=== PATIENT | female | born 1990 | race Caucasian/White ===

== ENCOUNTER 2023-01-21 15:59 | Outpatient (CLI) | payer BC, SELFPAY ==
--- NOTE | ~2023-01-21 | US_ITS ---
EXAMINATION: US OB /maternal detail DATE: 01/21/2023 21:03 INDICATION: anatomic survey. TECHNIQUE: Real-time ultrasound of the pelvis was performed. COMPARISON: Ultrasound 11/27/2022 FINDINGS: There is a single living fetus in transverse lie. The placenta is right fundal, 4.8 cm from the cerv ix. The cervical length is normal and measures 5.6 cm on transabdominal images. heart rate is 1 43 beats per minute (bpm). The amniotic fluid index is 15.0 cm, which is normal. The following biometric data were obtained: Biparietal diameter (BPD): 4.4 cm; head circumference (HC): 16.1 cm; abdominal circumference (AC): 13 .9 cm; femur length (FL): 2.5 cm. These measurements are concordant. Estimated weight is 249 g +/- 37 g, which correlates with the 74th percentile when 06/23/23 is used as estimated date of delivery. As single measurements, these parameters are each equal to the following estimated gestational ages: BPD: 19 weeks 1 days. HC: 18 weeks 6 days. AC: 19 weeks 2 days. FL: 17 weeks 5 days. estimated gestational age based solely on measurements from this exam is 18 weeks 5 days +/- 1 weeks 2 days. The cerebral ventricles, cerebellum, cisterna magna, nuchal fold, lip, and visualized portions of the spine are normal. The heart is normal. The diaphragm, stomach, kidneys, and bladder are normal. Ther e are two umbilical arteries to yield a 3-vessel cord. The cord insertion is normal. IMPRESSION: 1. Single living fetus in transverse lie. 2. Estimated weight is 249 g +/- 37 g, which correlates with the 74th percentile when 06/23/23 is used as estimated date of delivery. This date was set by ultrasound on 11/27/22. 3. Normal anatomic survey. Reviewed, dictated and finalized at location A. IMPRESSION: 1. Single living fetus in transverse lie. 2. Estimated weight is 249 g +/- 37 g, which correlates with the 74th pe rcentile when 06/23/23 is used as estimated date of delivery. This date was set by ultrasound on 11/27/22. 3. Normal anatomic survey.
== END 2023-01-21 16:00 | disposition home or self-care (01) ==
PROVIDERS: Visit Provider Obstetrics & Gynecology Gynecology
DX: Z36.9 Encounter for antenatal screening, unspecified (principal); Z3A.18 18 weeks gestation of pregnancy
CPT/HCPCS: 76805

== ENCOUNTER 2023-04-01 09:45 | Outpatient (RCR) | payer BC, SELFPAY ==
[2023-04-01 11:45] LABS: Hematocrit 33.2 % (37.0-47.0); Hemoglobin 10.8 g/dL (12.0-15.0)
[2023-04-01 12:00] LABS: Glucose 1 Hour PP 50gm Dose 121 mg/dL
[2023-04-01 12:40] LABS: HIV 1/2 Ab P24 Ag Result Negative (Negative)
[2023-04-01 13:20] LABS: Vitamin D 25 Hydroxy 44.8 ng/mL
[2023-04-01] MEDS: RHO(D) IMMUNE GLOBULIN 300 MCG/2 ML SYRINGE IM (14:34)
== END 2023-06-30 23:59 | disposition home or self-care (01) ==
LOC: ANHLAB 09:45
PROVIDERS: Visit Provider Obstetrics & Gynecology Gynecology
DX: Z11.4 Encounter for screening for human immunodeficiency virus [HIV] (principal); Z29.13 Encounter for prophylactic Rho(D) immune globulin; O36.0190 Maternal care for anti-D [Rh] antibodies, unspecified trimester, not applicable or unspecified; Z3A.00 Weeks of gestation of pregnancy not specified
CPT/HCPCS: 36415; 82306; 82947; 85014; 85018; 85461; 86703; 86850; 86900; 86901; 90384; 96372; G0432; J2790

== ENCOUNTER 2023-06-18 00:01 | Inpatient (IN) | payer BC, SELFPAY ==
[2023-06-18] VITALS (215 sets, daily range): BP systolic 94–216; BP diastolic 52–165; PULSE 52–159; RESP 16–18; TEMP 36.4–36.8; O2SAT 91–100; BMI 26.7
[2023-06-18 00:45] LABS: Basophils Absolute Auto 0.1 K/mm3 (0.0-0.1); Basophils Percent Auto 0.7 % (0.2-1.2); Eosinophils Absolute Auto 0.3 K/mm3 (0-0.3); Eosinophils Percent Auto 3.3 % (0-4.4); Immature Granulocyte Absolute 0.07 K/mm3 (0.00-0.031); Immature Granulocyte Percent A 0.7 % (0-0.5); Lymphocytes Absolute Auto 2.42 K/mm3 (0.9-3.2); Lymphocytes Percent Auto 25.6 % (18.3-44.2); Mean Corpuscular HGB Conc 32.4 g/dl (32-36); Mean Corpuscular Hemoglobin 28.5 pg (26-34); Mean Corpuscular Volume 88.1 fl (80-100); Mean Platelet Volume 10.2 fl (7.4-10.4); Monocytes Absolute Auto 0.9 K/mm3 (0.1-0.6); Monocytes Percent Auto 9.1 % (2.6-8.5); Neutrophils Absolute Auto 5.7 K/mm3 (1.3-6.7); Neutrophils Percent Auto 60.6 % (45.5-73.1); Platelet Count Result 266 k/mm3 (150-375); Red Blood Count 3.86 M/mm3 (4.2-5.4); Red Cell Distribution Width 13.2 % (11.5-14.5); White Blood Count 9.5 K/mm3 (4.5-10.0)
[2023-06-18] MEDS: miSOPROStol 25 MCG TABLET VAGINAL (00:50)
--- NOTE | 2023-06-18 00:55 | LDADM ---
This patient, Hannah Tamayo, was admitted to Labor/Delivery/Recovery 105 on 06/18/23 at 00:01. Plans for labor, pain management and were discussed with patient. Patient/family oriented to hospital policies and general routines including ID bracelet, bed and alarms, visiting hours, pain management, procedures, bathroom and other care routines, personal items, smoking policy, room service/diet and guest tray routines, infant security routines, and visiting hours. Patient/Family are encouraged to report perceived risks to care and to ask questions if they do not understand what they are told or what they should do. See OBIX for further documentation.
[2023-06-18 00:59] LABS: Amphetamine Screen Urine Negative (Negative); Barbiturate Screen Urine Negative (Negative); Benzodiazepines Screen Urine Negative (Negative); Cannabinoid Screen Urine Positive (Negative); Cocaine Screen Urine Negative (Negative); Methadone Screen Urine Negative (Negative); Opiate Screen Urine Negative (Negative); Phencyclidine Screen Urine Negative (Negative)
[2023-06-18] MEDS: LACTATED RINGERS 1,000 ML 125 ML IV CONT ×2 (06:09→07:41)
[2023-06-18] MEDS: OXYTOCIN 30 UNITS/NS 500 ML 30 UNITS/500 ML BAG IV CONT (06:09)
--- NOTE | 2023-06-18 07:34 | WPDOBADMIT ---
Obstetrics - Admit Note Admission Note: record reviewed. No pertinent additions to the history and/or any subsequent changes in the physical findings that are not consistent with the expected course of the were found. Additions to the history and/or subsequent changes in the physical findings follow. None.
[2023-06-18] MEDS: ONDANSETRON INJ 4 MG/2 ML VIAL IV PUSH (07:39)
--- NOTE | 2023-06-18 08:59 | PM.OBPNLAB ---
Pain Control Date/time seen: 06/18/23 08:59 Pain control: tolerating well and epidural Comments: Partner present and supportive. Pelvic Exam Dilation (cm): 5 Effacement (%): 80 station: -2 Amniotic membrane status: Bulging Comments: Bulging forebag Contractions Monitor mode: External Contraction frequency: 2 (1.5-3) Contraction duration: 60 Contraction pattern: Regular Contraction phase: Contraction Contraction intensity: Moderate Status status: Category l Assessment and Plan Pitocin rate (mU/min): 2 Assessment: active labor Plan: continuous present management Comments: CNM to bedside. Discussed plan of care an option for amniotomy of forebag. Patient is agreeable. Amniotomy performed and there was a large return of meconium stained amniotic fluid with particulate. Patient tolerated procedure well. Anticipate vaginal . Dr. Yan updated.
--- NOTE | 2023-06-18 09:38 | WPDANESEPPF ---
Anes - Initial Pre Proc Eval Procedure: labor epidural Date/Time: 06/18/23 09:38 Surgeon: Lucero Yan MD Pre Op Diagnosis: labor pain Pre Op Diagnosis: IOL Patient Data Age: 32 Gender: F Height: 1.65 m Weight: 73 kg Last Vital Signs Temp 36.6 C 06/18/23 07:59 Pulse 90 06/18/23 09:32 Resp 16 06/18/23 07:00 BP 105/86 06/18/23 09:32 Pulse Ox 100 06/18/23 09:37 O2 Del Method Room Air 06/18/23 00:54 Allergies Allergy/AdvReac Type Severity Reaction Status Date / Time No Known Allergies Allergy Verified 05/29/23 13:20 Home Medications Medication Instructions Recorded Confirmed Type aspirin 81 mg capsule 81 mg PO DAILY 05/29/23 05/29/23 History vits no.126-ferrous fum 1 tablet PO DAILY 05/29/23 05/29/23 History 28 mg iron-folic acid 800 mcg tablet (Classic ) Laboratory Tests 06/18/23 00:35 WBC 9.5 K/mm3 (4.5-10.0) RBC 3.86 L M/mm3 (4.2-5.4) Hgb 11.0 L g/dL (12.0-15.0) Hct 34.0 L % (37.0-47.0) MCV 88.1 fl (80-100) MCH 28.5 pg (26-34) MCHC 32.4 g/dl (32-36) RDW 13.2 % (11.5-14.5) Plt Count 266 k/mm3 (150-375) MPV 10.2 fl (7.4-10.4) Immature Gran % (Auto) 0.7 H % (0-0.5) Neut % (Auto) 60.6 % (45.5-73.1) Lymph % (Auto) 25.6 % (18.3-44.2) [place] % (Auto) 9.1 H % (2.6-8.5) Eos % (Auto) 3.3 % (0-4.4) Baso % (Auto) 0.7 % (0.2-1.2) Lymph # (Auto) 2.42 K/mm3 (0.9-3.2) [place] # (Auto) 0.9 H K/mm3 (0.1-0.6) Eos # (Auto) 0.3 K/mm3 (0-0.3) Baso # (Auto) 0.1 K/mm3 (0.0-0.1) Abs Immat Gran (auto) 0.07 H K/mm3 (0.00-0.031) Absolute Neuts (auto) 5.7 K/mm3 (1.3-6.7) Absolute Nucleated RBC 0.0 K/mm3 (0.0-0.012) Nucleated RBC % 0.0 % (0.0-0.2) Urine Opiates Screen Negative (Negative) Urine Methadone Screen Negative (Negative) Ur Barbiturates Screen Negative (Negative) Ur Phencyclidine Scrn Negative (Negative) Ur Amphetamine Screen Negative (Negative) U Benzodiazepines Scrn Negative (Negative) Urine Cocaine Screen Negative (Negative) U Cannabinoids Screen Positive A (Negative) RPR Pending Blood Type O Negative Antibody Screen Positive Antibody Identification Inconclusive Antigen Identification Cancelled TANYA, IgG Interpret Not Performed TANYA, Poly Interpret Neg TANYA, Complement Interp Not Performed Patient hx anesthesia problems: none Family hx anesthesia problems: none Results Review: All pre-operative results and documents have been reviewed as part of the pre-operative evaluation. [facility] Family History Family History (Updated 05/29/23 @ 13:30 by Tsering Delgado RN) Mother Hypertension Sibling Heart palpitations Social History Social History Years smoked: 12 Smoking status: Current every day smoker Tobacco type: cigarettes Substance use: never Do You Feel Safe in your Home?: Yes Lack of Transportation: No Lack of Food: Never True Current Housing: I Have Housing Concerned About Future Housing: No Difficulty Paying Gas/Electric Bills: No Difficulty Paying for Meds: No Currently Unemployed: No Education: Associate Degree Difficulty w/ Childcare or Family Care: No Spiritual care concerns: No Anes - Eval Final PreProcedure Day of Procedure 06/18/23 09:38 Patient weight: overweight ASA classification: III Anesthetic plan: proceed Anesthesia type and monitoring: regional epidural and standard monitoring Results Review: All pre-operative results and documents have been reviewed as part of the pre-operative evaluation. Informed Consent: The patient's anesthetic plan and its attendant risks and benefits were discussed with the patient/family/POA. Questions were solicited and answers provided to the satisfaction of the patient/family/POA.
[2023-06-18 10:33] LABS: Rapid Plasma Reagin Non-Reactive (NonReactive)
--- NOTE | 2023-06-18 11:39 | PM.OBPNLAB ---
Pain Control Date/time seen: 06/18/23 11:36 Pain control: tolerating well and epidural Pelvic Exam Dilation (cm): 5 Effacement (%): 80 station: -2 Amniotic membrane status: Bulging Contractions Monitor mode: External Contraction frequency: 2 (1.5-4) Contraction pattern: Regular Contraction phase: Contraction Contraction intensity: Moderate Status status: Category l Assessment and Plan Pitocin rate (mU/min): 2 Assessment: induction ongoing Plan: continuous present management Comments: SVE by CNM. Discussed IUPC placement. Pt agreeable. IUPC placed easily and returned with light meconium tinged fluid. Plan to increase oxytocin as needed to achieve adequate ctx pattern. Anticipate vaginal . Dr. Yan updated.
--- NOTE | 2023-06-18 15:11 | PM.OBPRVD ---
OB - Vaginal Delivery Note Procedure Delivery date: 06/18/23 Events: Elective Induction of Labor Induction method: Per Misoprostol Protocol Delivery augmentation: Pitocin Delivery monitor: External FHT and Internal FHT Route of delivery: Episiotomy description: None Laceration Description: Vaginal (1st degree) and Superficial (right labial) Delivery repair: vicryl Specimen: Yes (placenta) Quantitative Blood Loss (ml): 50 Anesthesia type: Epidural Disposition: Floor Complications: No immediate complications Narrative: Hannah arrived for induction of labor at term. She was given Cytotec followed by oxytocin. She had SROM and then received an epidural for analgesia. she progressed to complete dilation and pushed very well with contractions. She delivered the head in a controlled manner over an intact perineum after which there was good restitution. The anterior and posterior shoulders delivered easily followed by the remainder of the . The was placed on maternal abdomen and dried and stimulated by the nursery staff. After 1 minute of life, the cord was doubly clamped and cut. Cord blood, cord gases, and cord segment were obtained. The placenta delivered spontaneously and a first-degree vaginal laceration was repaired in the usual fashion. There was excellent uterine tone and good hemostasis. All delivery counts correct. Mother and baby skin to skin in the delivery room. [place] Baby Date of : 06/18/23 Time of : 14:42 Weeks of gestation at delivery: 39 gender: Male Weight (pounds): 0 (unavailable at the time of this note) presentation: vertex position: Right Occiput Anterior Placenta delivery description: Spontaneous and Normal Configuration Cord Vessel Description: 3 Vessels and Delayed Cord Clamping score one minute: 8 score five minutes: 9
--- NOTE | 2023-06-18 15:15 | PM.OBDSVD ---
DS: Admitting Diagnosis Discharge Date 06/20/[address] Yan Admitting Diagnosis 32 y.o. at 39 weeks gestation IOL Nicotine and MJ use during DS: Discharge Diagnosis Discharge Diagnosis (1) (normal spontaneous vaginal delivery): Code(s): O80 - Encounter for full-term uncomplicated delivery Status: Acute (2) Mother currently breast-feeding: Code(s): Z39.1 - Encounter for care and examination of lactating mother Status: Acute (3) Rh negative status during : Code(s): O26.899 - Other specified related conditions, unspecified trimester; Z67.91 - Unspecified blood type, Rh negative Status: Acute Assessment and Plan: Baby Rh negative. OB - DS: Summary Hospital Course Hospital Course: Uncomplicated OB Procedures : Ultrasound OB Procedures Intrapartum: Spontaneous Vag Delivery OB Procedures: : Rubella lg Peripartum Data Infant Delivery Method: Natural Vaginal Laceration Description: Vaginal (1st degree) and Superficial (right labial) Episiotomy description: None complications: none Time Spent with Patient Time attestation: Total time spent providing and/or coordinating discharge services: DS: Data Data Completed and Pending Labs on day of discharge: Labs from last 24 hours 06/18/23 00:35 WBC 9.5 RBC 3.86 L Hgb 11.0 L Hct 34.0 L MCV 88.1 MCH 28.5 MCHC 32.4 RDW 13.2 Plt Count 266 MPV 10.2 Immature Gran % (Auto) 0.7 H Neut % (Auto) 60.6 Lymph % (Auto) 25.6 [place] % (Auto) 9.1 H Eos % (Auto) 3.3 Baso % (Auto) 0.7 Lymph # (Auto) 2.42 [place] # (Auto) 0.9 H Eos # (Auto) 0.3 Baso # (Auto) 0.1 Abs Immat Gran (auto) 0.07 H Absolute Neuts (auto) 5.7 Absolute Nucleated RBC 0.0 Nucleated RBC % 0.0 Urine Opiates Screen Negative Urine Methadone Screen Negative Ur Barbiturates Screen Negative Ur Phencyclidine Scrn Negative Ur Amphetamine Screen Negative U Benzodiazepines Scrn Negative Urine Cocaine Screen Negative U Cannabinoids Screen Positive A RPR Non-reactive Blood Type O Negative Antibody Screen Positive Antibody Identification Inconclusive Antigen Identification Cancelled TANYA, IgG Interpret Not Performed TANYA, Poly Interpret Neg TANYA, Complement Interp Not Performed Discharge Plan Discharge Attending physician on discharge: Lucero Yan Consulting providers: Azalea Kearney; Hector Araujo; Ursula Martinez Discharging Clinician: Lucero Yan Anticipated Discharge Date/Time: 06/20/23 15:18 Patient Disposition: Home, Self-Care Activity: may shower and may drive after 2 weeks Diet: as tolerated Wound Care Instructions: follow printed instructions Discharge Instructions: Education: Mom and Baby Guide Given to: Mother Follow-Up: Call your delivering provider's office for an appointment to be seen in: 6 Weeks Mom and baby should come to the [facility] for the follow-up appointment. Appointment Date/Time: June 21, 2023 at 2:30 pm What to expect at your follow-up visit: Blood Pressure Check Physical Assessment Call [phone] if you are unable to keep your appointment time. BREAST CARE: * Wear a snug supportive bra. * For engorgement discomfort: Breast Feeding: * Apply warm moist washcloths * Express milk as needed to relieve engorgement * Wear loose clothing Bottle Feeding: * May apply ice packs * For sore nipples: * Identify correct latch-on * Apply warm moist washcloths before and after nursing * Air dry nipples after nursing * May apply Lansinoh cream to nipples PERINEAL CARE: * Until bleeding stops, use your chen bottle after urinating * Change your pad frequently throughout the day * You may take sitz baths several times a day (fill your bathtub with warm water and soak for 20 minutes.) Do NOT
[2023-06-18] MEDS: OXYTOCIN 30 UNITS/NS 500 ML 30 UNITS/500 ML BAG 125 UNITS IV CONT (15:16)
[2023-06-18] MEDS: WITCH HAZEL 40 PADS 1 PAD TOPICAL (17:11)
[2023-06-18] MEDS: BENZOCAINE 20% AER SPR (*SP) 56 GM CAN 1 SPRAY TOPICAL (17:12)
--- NOTE | 2023-06-18 17:27 | PC.NURSE ---
Patient transferred to post room #284 via wheelchair. Support person present. Oriented to unit, room, information board, rooming in, admission packet and security measures. Patient verbalizes understanding.
[2023-06-18] MEDS: IBUPROFEN 600 MG TABLET PO (17:43)
[2023-06-19 05:01] LABS: Hematocrit 30.2 % (37.0-47.0); Hemoglobin 9.7 g/dL (12.0-15.0)
--- NOTE | 2023-06-19 07:22 | WPDANLDPN2 ---
Anes-Prog Note L&D Date/Time: 06/19/23 07:22 Comfortable throughout: labor and delivery Neuraxial method: epidural Epidural/Spinal procedure site: tender Neuro status: Neuro function grossly intact. Cardiovascular status: normal Respiratory status: normal Airway patency: baseline Mental status: baseline Post-Op hydration status: normal Vital Signs: Last Vital Signs Temp 36.8 C 06/18/23 23:25 Pulse 65 06/18/23 23:25 Resp 18 06/18/23 23:25 BP 123/75 06/18/23 23:25 Pulse Ox 98 06/18/23 17:45 O2 Del Method Room Air 06/18/23 00:54 Pain score (VAS): 3/10 I/O: Intake & Output 06/18/23 06/18/23 06/19/23 15:59 23:59 07:59 Intake Total 700 500 Output Total 50 50 Balance 650 450 Post-procedural complaints: none Patient feedback: Patient satisfied with anesthetic care.
--- NOTE | 2023-06-19 07:39 | PM.OBPNVD ---
OB - PN: Subj Subjective Date/time seen: 06/19/23 07:15 Interval history: Doing well. Urinating without difficulty. Denies passing any large clots. Denies dizziness with ambulating. Tolerating po food and fluids. Bonding with . Patient comments: no complaints and pain well controlled baby status: doing well [place] feeding status: exclusively breast feeding OB - PN: Obj Data Labs 06/19/23 04:25 Labs: Laboratory Results - last 24 hr 06/18/23 06/19/23 00:35 04:25 Hgb 9.7 L Hct 30.2 L RPR Non-reactive OB - PN A/P Plan day: 1 Plan: routine care Time Spent With Patient Time: Total time spent is greater than 50% in coordination of care (as documented) at patient's floor/unit and/or counseling patient: Review of Systems Review of Systems: All systems reviewed & are unremarkable except as noted in HPI and below Exam Narrative: Alert and oriented. Mood is pleasant and cooperative. Perineum with minimal edema. Fundus firm and below umbilicus. Const: General: cooperative, healthy appearing, no acute distress and alert Orientation/consciousness: patient oriented x3 Limitations: no limitations Resp: Effort & Inspection: normal respiratory effort and able to speak in complete sentences Auscultation: clear to auscultation bilaterally Cardio: Rate: regular rate GI: Inspection: normal to inspection Auscultation: normal bowel sounds : General: Yes bladder normal to palpation External Female Exam: other (lochia WNL) Bimanual exam- vagina & uterus: bladder normal to palpation Other: Fundus firm and below U Skin: General skin exam: normal color and no rashes or lesions noted Neuro: General: patient oriented x3 and moves all extremities Cognition (Neuro): normal cognition Extrem: General: normal to inspection and no calf tenderness Psych: Appearance: grossly normal Mental Status: mental status grossly normal Affect: normal affect Thought process: Normal thought process present
[2023-06-19 08:50] VITALS: BP 105/67; PULSE 84; RESP 18; TEMP 36.4; O2SAT 97
[2023-06-19] MEDS: MULTIVIT/MIN/PREN/FOL AC/IRON TABLET 1 TAB PO (09:00)
[2023-06-19] MEDS: DOCUSATE SODIUM 100 MG CAPSULE PO ×2 (11:00→16:35)
[2023-06-19] MEDS: POLYSACCHARIDE IRON COMPLEX 150 MG CAPSULE PO ×2 (11:00→16:35)
[2023-06-19] MEDS: LANOLIN (LANSINOH) 7.5 GM CREAM 1 APPLIC TOPICAL (11:00)
[2023-06-19 11:48] VITALS: BP 111/71; PULSE 66; RESP 16; TEMP 36.8; O2SAT 98
--- NOTE | 2023-06-19 13:24 | PCCCNOTE ---
Care Coordination: Patient scored high on substance use screening and UDS positive for marijuana. Baby UDS not tested. Met with pt. and FOB at bedside. Pt. reports they had 3 baby showers and much family support. They report not qualifying for WIC and deny any resource needs. They plan to return home all together. This is pt.'s 2nd baby. She is breast feeding. RN reports no concerns with mother baby bonding. Pt. denies substance abuse issues and that she used marijuana since she had trouble eating. Spoke with Nataly Alves at [facility] hotline (intake ID#[id number]) and she took pt.'s situation as information only. No further CC needs.
--- NOTE | 2023-06-19 16:10 | PC.NURSE ---
[id number] Introductions were made, then consulted with patient to assess needs related to . Mother led the conversation with her?plans to feed?her infant, the?experience so far with some latches not quite right. Encouraged understanding of the benefits of skin to skin (demonstrating unwrapping infant and placing upright on her chest), stimulating with massage touch, changing positions to encourage wakefulness, how to watch for early feeding cues, responsive feeding, feeding on demand (aiming for 8-12 times in 24 hours, about every 2-3 hours), milk production, building/maintaining a milk supply, duration of feeding, signs of adequate intake/output and how to record on the feeding sheet. Mother works well with her with encouragement and education. Reviewed positioning and ear, shoulder, hip alignment, supporting the breast to facilitate a deep latch, asymmetrical latch (off-center), leading with the chin with a big, open, wide gape and body close to mother. Reviewed comfort measures of healing with a warm, wet washcloth to rinse breast, then leave open to air-dry, good handwashing when or touching the breast/nipples to prevent infection. Mother voiced understanding of skin to skin, stimulating with massage touch, responsive feedings, hand expressed colostrum, talking to infant to encourage if it has been 2 -2.5 hours since the start of the last , to call if infant does not latch, or if there is discomfort with . Resources used for education were facilitated with the visual educational handouts, tool, mom and baby guide, Inpatient/outpatient resources provided with feeding sheet, name written on the communication board, and the mom/baby guide. Parents voiced understanding of information, demonstrated learning and will call if there is a request for assistance. Reported to the Primary RN. Primary RN reported that she assisted mother with an appropriate latch without pain after consult.
[2023-06-19 16:45] VITALS: BP 111/78; PULSE 65; RESP 16; TEMP 37; O2SAT 98; O2SAT 99
[2023-06-19 20:44] VITALS: BP 113/70; PULSE 67; RESP 16; TEMP 37.1; O2SAT 99
[2023-06-19] MEDS: IBUPROFEN 600 MG TABLET PO (21:00)
[2023-06-20] MEDS: POLYSACCHARIDE IRON COMPLEX 150 MG CAPSULE PO (08:04)
[2023-06-20] MEDS: DOCUSATE SODIUM 100 MG CAPSULE PO (08:04)
[2023-06-20] MEDS: MEASLES,MUMPS,RUBELLA VACCINE 0.5 ML VIAL SUB-Q (08:04)
[2023-06-20] MEDS: MULTIVIT/MIN/PREN/FOL AC/IRON TABLET 1 TAB PO (08:04)
[2023-06-20 08:22] VITALS: BP 114/76; PULSE 101; RESP 18; TEMP 36.9; O2SAT 100
--- NOTE | 2023-06-20 10:36 | PC.NURSE ---
[id number] Purposefully rounded to assess needs. Mother states her nipples are very sore and she has a gel pack on her left nipple related to an injury of only on the left for a while. Mother shares that she formula fed infant to keep her sanity last night. Mother also bottle fed less than 3 hours ago but was willing to see if infant would practice . Mother led the conversation with her?plans to feed?her infant, the?experience so far and her 1 year history with her first child. Encouraged understanding of the benefits of skin to skin (demonstrating unwrapping and placing upright on her chest), stimulating with massage touch, changing positions to encourage wakefulness, how to watch for early feeding cues, responsive feeding, feeding on demand (aiming for 8-12 times in 24 hours, about every 2-3 hours), milk production, building/maintaining a milk supply, duration of feeding, signs of adequate intake/output and how to record on the feeding sheet. Mother demonstrates not waiting for a big, open, wide gape to latch her , then shoves the nipple into her infants mouth with her thumb. RN encouraged better positioning, waiting for the big, open gaped mouth, then bringing the infant to the breast with fingers away from where the lips will go. Mother works well with her with encouragement and education. Reviewed positioning and ear, shoulder, hip alignment, supporting the breast to facilitate a deep latch, asymmetrical latch (off-center), leading with the chin with a big, open, wide gape and body close to mother. Infant latched optimally to the right breast in cross cradle position and no misshaped nipple was seen with detaching. There are times pulls back from a effective latch and suckles on the nipple. Encouraged mother to gently, yet assertively encourage infant staying deeply latched after a big open mouth to protect the nipple getting it back to the soft palate. Infant was able to maintain latch without pain to mother protecting the nipple with optimal positioning and latching, however; did not breastfeed for long and laid there with nipple in the mouth. Reviewed comfort measures of healing with a warm, wet washcloth to rinse breast, then leave open to air-dry, good handwashing when or touching the breast/nipples to prevent infection. Mother voiced understanding of skin to skin, stimulating with massage touch, responsive feedings, hand expressed colostrum, talking to to encourage if it has been 2 -2.5 hours since the start of the last , to call if infant does not latch, or if there is discomfort with . Inpatient resources provided with name written on the communication board. Mother voiced understanding of information, and will call if there is a request for assistance. Reported to the Primary RN.
[2023-06-20] MEDS: IBUPROFEN 600 MG TABLET PO (12:27)
--- NOTE | 2023-06-20 12:44 | PM.OBPNVD ---
OB - PN: Subj Subjective Date/time seen: 06/20/23 12:44 Interval history: Patient comments: no complaints baby status: doing well OB - PN: Obj Data Labs 06/19/23 04:25 OB - PN A/P Plan day: 2 Plan: routine care, discharge home, follow up 6 weeks and other (plans condoms until vasectomy) Time Spent With Patient Time: Total time spent is greater than 50% in coordination of care (as documented) at patient's floor/unit and/or counseling patient: Exam : Bimanual exam- vagina & uterus: other (Uterus firm, nt @U)
--- NOTE | 2023-06-20 13:00 | PC.NURSE ---
Patient viewed the discharge video Mother & Baby Care, The First Two Weeks . Patient was given the opportunity and encouraged to ask questions. Patient verbalized understanding of information shared and has been given the mother/baby guide for home reference.
--- NOTE | 2023-06-20 14:00 | PC.NURSE ---
[phone] Mother requested assistance with . Discussed with mother her successes, concerns and any questions she has. We reviewed working with the infant, supporting breast, protecting her nipples with an optimal deep latch, good positioning, and good hand washing as she has previously injured her nipples with shallow latches. Encouraged understanding the benefits of skin to skin, responding to feeding cues, frequencies of feeding 8-12 times in 24 hours (approximately 2-3 hours), duration of feedings, milk production, intake/output feeding sheet and signs of adequate intake encouraging swallowing at the breast. Reviewed positioning and alignment, supporting breast, off-centered (asymmetrical latch) and leading with the chin with big, open, wide gape. Infant latched optimally to the right breast in cross cradle position. Education given to the mother of how to visualize the suckling (with good rocking jaw motion) swallows (dropping of the lower jaw) and how to listen for drinking at the breast (the ka sound). The was able to maintain latch without discomfort to mother. Nipple care reviewed with optimal latch, good positioning and using clean hands when touching her breast. Resources used to facilitate learning were used from the visual handouts, tool, mom and baby guide. Mother voiced understanding of the education shared, to call for assistance if the does not latch or if there is discomfort with . Reported to the Primary RN.
[2023-06-21 14:54] VITALS: BP 113/78; PULSE 67; RESP 18; TEMP 36.8; O2SAT 100
== END 2023-06-20 14:25 | disposition home or self-care (01) | DRG 806 ==
LOC: ANHLDR 15:19 → ANHOB2 17:28
PROVIDERS: Advanced Practice Midwife; Admitting Provider Obstetrics & Gynecology Gynecology; Visit Provider Obstetrics & Gynecology Gynecology
DX: O77.0 Labor and delivery complicated by meconium in amniotic fluid (principal); O99.324 Drug use complicating childbirth; Z37.0 Single live birth; O70.0 First degree perineal laceration during delivery; Z3A.39 39 weeks gestation of pregnancy; Z67.91 Unspecified blood type, Rh negative; O26.893 Other specified pregnancy related conditions, third trimester; F12.90 Cannabis use, unspecified, uncomplicated
CPT/HCPCS: 36415; 80307; 85014; 85018; 85025; 86592; 86850; 86880; 86900; 86901; 88307; 90710; A9270; J2405; J2590; J2795; J7120

== ENCOUNTER 2025-01-26 09:21 | Outpatient (CLI) | payer OTHER, BC, SELFPAY ==
[2025-01-26 10:19] LABS: Beta HCG Quantitative 4193.50 mIU/ML
== END 2025-01-26 09:22 | disposition home or self-care (01) ==
LOC: ANHLAB 09:28
PROVIDERS: PCP Family Medicine; Visit Provider Obstetrics & Gynecology
DX: N91.2 Amenorrhea, unspecified (principal)
CPT/HCPCS: 36415; 84702

== ENCOUNTER 2025-02-01 16:38 | Outpatient (RCR) | payer OTHER, BC, SELFPAY ==
[2025-02-01 17:51] LABS: Beta HCG Quantitative 6240.60 mIU/ML
== END 2025-05-02 23:59 | disposition home or self-care (01) ==
LOC: ANHLAB 16:38
PROVIDERS: PCP Family Medicine; Visit Provider Obstetrics & Gynecology
DX: O36.0130 Maternal care for anti-D [Rh] antibodies, third trimester, not applicable or unspecified (principal); Z36.89 Encounter for other specified antenatal screening
CPT/HCPCS: 36415; 84702; 85461; 86850; 86900; 86901; 90384; J2790

== ENCOUNTER 2025-02-01 21:52 | Emergency (ER) | payer OTHER, BC, SELFPAY ==
--- NOTE | ~2025-02-01 | US_ITS ---
EXAMINATION: US OB <=14 wk fetus w TV DATE: 02/01/2025 22:52 CDT INDICATION: Right lower quadrant pain with decreasing quantitative beta hCG and brown discharge COMPARISON: None TECHNIQUE: Real-time transabdominal obstetric ultrasound. FINDINGS: 3 para 2 last menstrual period is given as 12/11/2024 Estimated date of delivery by last menstrual period is 09/17/2025 The uterus measures 8.8 x 4.6 x 7.4 cm. A gestational sac is identified within the uterus which is markedly abnormal demonstrating a large yo lk sac, very little fluid and a small pole. The yolk sac measures 6.3 x 5.8 mm, consistent with a large yolk sac. A pole is identified, with a crown-rump length that measures 0.5 cm, corresponding to an approx imate gestational age of 6 weeks and 1 day. cardiac activity is identified at a rate of 89 bpm. The right ovary measures 2.3 x 2.4 x 2.5 cm. The left ovary measures 2.4 x 0.9 x 1.6 cm. Estimated date of delivery by ultrasound is 09/26/2025 IMPRESSION: Single intrauterine gestation with an approximate gestational age of 6 weeks and 1 day, with low feta l cardiac activity identified. Generally, a yolk sac diameter of greater than 5 mm at a gestational age of 5-10 weeks can be associa kale with an increased risk of spontaneous miscarriage for which short-term follow-up is needed to ass ess viability. Reviewed, dictated and finalized at location A. IMPRESSION: Single intrauterine gestation with an approximate gestational age of 6 weeks an d 1 day, with low cardiac activity identified. Generally, a yolk sac diameter of greater than 5 mm at a gestational age of 5-1 0 weeks can be associated with an increased risk of spontaneous miscarriage for which short-term follow-up is needed to assess viability.
[2025-02-01 21:54] VITALS: BP 119/77; PULSE 94; RESP 16; TEMP 36.6; O2SAT 98
[2025-02-01 22:53] VITALS: BP 116/68; PULSE 84; RESP 16; O2SAT 100
--- NOTE | 2025-02-02 00:07 | ED_ITS ---
HPI - General Chief complaint: [employer] Stated complaint: possibly having an ectopic Time Seen by Provider: 02/01/25 22:54 Source: patient Mode of arrival: ambulatory Limitations: no limitations History of Present Illness HPI Narrative: Patient is a 34-year-old female who presents the ED with report of vaginal spotting, right lower abdominal pain. Patient is , approximately 7 weeks gestation[address] She sees Dr. Preston. She reports she has had intermittent right lower abdominal pain over the past 1 week. Today, she developed some brown vaginal spotting. Denies bright red vaginal bleeding. She had outpatient blood work performed which showed that her hCG level had increased from last week, but only slightly. Patient is concerned for ectopic . Denies nausea, vomiting, fevers. Related Data Home Medications ?Medication ?Instructions ?Recorded ?Confirmed ?Last Taken ?Type No Home Medications 02/01/25 02/01/25 Unknown History Allergies Allergy/AdvReac Type Severity Reaction Status Date / Time TB test Allergy Intermediate Bump Uncoded 02/01/25 21:53 Review of Systems Review of Systems: All systems reviewed & are unremarkable except as noted in HPI. All systems reviewed & are unremarkable except as noted in HPI and below PMFSH Family History Family History Mother Hypertension Sibling Heart palpitations Father No problems noted. Social History Social History Years smoked: 12 Smoking status: Smoker, status unknown (messaged on the portal ) Tobacco type: cigarettes Substance use: never Do You Feel Safe in your Home?: Yes Lack of Transportation: No Lack of Food: Never True Current Housing: I Have Housing Concerned About Future Housing: No Difficulty Paying Gas/Electric Bills: No Difficulty Paying for Meds: No Currently Unemployed: No Education: Associate Degree Difficulty w/ Childcare or Family Care: No Spiritual care concerns: No Exam Narrative: GENERAL: Well appearing, thin, non-toxic, in no acute distress. HEAD: Normocephalic, atraumatic. RESPIRATORY: Airway patent, respirations nonlabored. CARDIOVASCULAR: Regular rate and rhythm MUSCULOSKELETAL: Moves all extremities. No gross deformities. SKIN: Warm, dry, normal color. NEURO: A&O X3. Speech clear. Cranial nerves II-XII grossly intact. Steady gait. No ataxic movements. PSYCHIATRIC: Appropriate mood and affect. Normal interaction. Course Vital Signs Vital signs: Vital Signs Temperature 97.9 F 02/01/25 21:54 Pulse Rate 94 02/01/25 21:54 Respiratory Rate 16 02/01/25 21:54 Blood Pressure 119/77 02/01/25 21:54 Pulse Oximetry 98 02/01/25 21:54 Oxygen Delivery Room Air 02/01/25 21:54 Temperature 97.9 F 02/01/25 21:54 Pulse Rate 84 02/01/25 22:53 Respiratory Rate 16 02/01/25 22:53 Blood Pressure 116/68 02/01/25 22:53 Pulse Oximetry 100 02/01/25 22:53 Oxygen Delivery Room Air 02/01/25 21:54 MDM - OB/Uterine Contractions MDM Narrative Medical decision making narrative: Patient presented to ED with concern for ectopic , approximately 7 weeks gestation, brown vaginal spotting, right lower quadrant abdominal pain. Patient reports that her hormone level did not appropriately increased on outpatient labs today. Patient's blood type is O negative. Will order RhoGAM to be given in the ED. Ob ultrasound obtained today does show abnormalities: A gestational sac is identified within the uterus which is markedly abnormal demonstrating a large yolk sac, very little fluid and a small pole. The yolk sac measures 6.3 x 5.8 mm, consistent with a large yolk sac. IMPRESSION: Single intrauterine gestation with an approximate gestational age of 6 weeks and 1 day, with low cardiac activity identified. Generally, a yolk sac diameter of greater than 5 mm at a gestational age of 5-10 weeks can be associated with an increased risk of spontaneous miscarriage for which short-term follow-up is needed to assess viability. Discussed imaging findings with patient and significant other at bedside. Discussed case with Dr. Preston, [place] f/u with patient. She has appointment tomorrow. Patient advised to continue to monitor symptoms. Given very strict return precautions. She is in agreement with plan. Discharged in stable condition. Medical Records Attestation: I reviewed the patient's medical records. Lab Data Attestation: I reviewed the patient's lab results. Imaging Data Attestation: I personally reviewed and interpreted this imaging study as follows: Radiologist's impression: ITS Impressions Obstetrics Ultrasound 08/11/25 22:52 IMPRESSION: Single intrauterine gestation with an approximate gestational age of 6 weeks and 1 day, with low cardiac activity identified. Generally, a yolk sac diameter of greater than 5 mm at a gestational age of 5-10 weeks can be associated with an increased risk of spontaneous miscarriage for which short-term follow-up is needed to assess viability. Discharge Plan Discharge Clinical Impression: Threatened miscarriage in early Patient Disposition: Home Condition: Stable Instructions: Antibiotic Form, Miscarriage (ED), Threatened Miscarriage (ED) Additional Instructions: Follow-up with OBGYN at your appointment tomorrow. Continue to monitor symptoms. Return to the ED if you experience worsening or severe bleeding, severe pain, unable to keep down food or drink, passing out, or any other symptoms of concern. Patient Language: [place] Prescriptions: No Action No Home Medications Follow-up/Referrals: Timmy Preston MD [Physician] - (OBGYN) Mimi Belcher DO [Primary Care Provider] - Time of Disposition: 00:08
[2025-02-02] MEDS: RHO(D) IMMUNE GLOBULIN 300 MCG/2 ML SYRINGE IM (00:52)
[2025-02-02 00:55] VITALS: BP 132/81; PULSE 87; RESP 18; TEMP 37.1; O2SAT 98
== END 2025-02-02 00:56 | disposition home or self-care (01) ==
PROVIDERS: Emergency Provider Physician Assistant; PCP Family Medicine
DX: O20.0 Threatened abortion (principal); O99.331 Smoking (tobacco) complicating pregnancy, first trimester; F17.210 Nicotine dependence, cigarettes, uncomplicated; Z3A.01 Less than 8 weeks gestation of pregnancy
CPT/HCPCS: 76801; 76817; 99284

== ENCOUNTER 2025-02-03 08:23 | Outpatient (CLI) | payer OTHER, BC, SELFPAY ==
[2025-02-03 10:13] LABS: Beta HCG Quantitative 7175.50 mIU/ML
== END 2025-02-03 08:24 | disposition home or self-care (01) ==
LOC: ANHLAB 08:26
PROVIDERS: PCP Family Medicine; Visit Provider Obstetrics & Gynecology
DX: O03.9 Complete or unspecified spontaneous abortion without complication (principal); Z3A.00 Weeks of gestation of pregnancy not specified
CPT/HCPCS: 36415; 84702